=== PATIENT | male | born 1960 | race Caucasian/White ===

== ENCOUNTER → 2016-11-28 | Outpatient (CLI) | payer BC ==
--- NOTE | 2016-11-28 13:06 | PCVCIMAG ---
EXAM: ABDOMINAL ULTRASOUND COMPLETE INDICATION: Abdominal pain FINDINGS: Gallbladder: Previous cholecystectomy. Liver: Upper limits of normal in size measuring 19.7 cm in length. No focal masses. Diffuse increased echogenicity throughout the liver most compatible with diffuse fatty infiltration. Bile ducts: No intra or extra hepatic bile duct dilatation. The common bile duct measures 5.7 mm. Pancreas: Unremarkable where seen. Spleen: Normal in size measuring 13.3 cm in greatest dimension. No focal masses. Right kidney: No hydronephrosis. Length measures 13.3 cm. Left kidney: No hydronephrosis. Length measures 13.4 cm. 1.4 x 1.7 cm presumed shadowing stone lower pole. Inferior vena cava: Normal in size where seen. Aorta: Normal in caliber where seen. IMPRESSION: 1. Likely diffuse fatty infiltration of the liver. 2. Cholecystectomy. 3. 1.7 cm probable calculus lower pole left kidney. LOC:[id number]
== END | disposition home or self-care (01) ==
LOC: PCVCIMAG 11:08
PROVIDERS: ATTEND Internal Medicine Cardiovascular Disease
DX: K76.0 Fatty (change of) liver, not elsewhere classified (principal); I10 Essential (primary) hypertension; E78.00 Pure hypercholesterolemia, unspecified; E11.9 Type 2 diabetes mellitus without complications; Z79.4 Long term (current) use of insulin; Z90.49 Acquired absence of other specified parts of digestive tract; Z82.49 Family history of ischemic heart disease and other diseases of the circulatory system; Z87.891 Personal history of nicotine dependence; Z79.899 Other long term (current) drug therapy
CPT/HCPCS: 36415; 76700; 80061; 93005; G0463

== ENCOUNTER → 2017-05-20 | Outpatient (CLI) | payer BC | END | disposition home or self-care (01) | LOC: PCVCIMAG 10:37 | DX: I10 Essential (primary) hypertension (principal); E11.9 Type 2 diabetes mellitus without complications; E83.59 Other disorders of calcium metabolism; R00.2 Palpitations; R07.9 Chest pain, unspecified | CPT/HCPCS: 93325; 93351 ==